=== PATIENT | male | born 1990 | race Caucasian/White ===

== ENCOUNTER 2019-08-04 13:42 | Emergency (ER) | payer OTHER ==
[~2019-08-04] VITALS: Ht 175.3 cm; Wt 85.5 kg
[2019-08-04 14:22] LABS: BASOPHILS % (AUTO) 0 % (0-1); EOSINOPHILS # (AUTO) 0.04 x10^3/uL (0-0.4); EOSINOPHILS % (AUTO) 0 % (1-7); LYMPHOCYTES # (AUTO) 1.98 x10^3/uL (1-3.4); LYMPHOCYTES % (AUTO) 17 % (22-44); MD NO; MEAN CORPUSCULAR HEMOGLOBIN 29.8 pg (27.5-34.5); MEAN CORPUSCULAR HGB CONC 32.8 g/dL (33.2-36.2); MEAN PLATELET VOLUME 7.9 fL (7.4-10.4); MONOCYTES # (AUTO) 0.63 x10^3/uL (0.2-0.8); MONOCYTES % (AUTO) 6 % (2-9); NEUTROPHILS # (AUTO) 8.81 x10^3/uL (1.8-6.8); NEUTROPHILS % (AUTO) 77 % (42-75); PLATELET COUNT 434 x10^3/uL (130-400)
--- NOTE | 2019-08-04 14:24 | NUR ---
LATE NOTE ENTRY DUE TO PT CARE: TASK RN, FIRST CONTACT WITH PT. Pt presents to ED with c/o intermittent sternal cp with out radiation that causes pt to feel sob. Pt denies pmh of cardiac issues. Pt connected to NIBP cuff, continous pulse ox monitor, and solderer torch. Lab at bedside. Call light within reach. Friend at bedside. Pt denies n/v/d, diaphoresis, or trauma. Pt has unlabored respirations with even chest rise and fall.
[2019-08-04 14:34] LABS: ALBUMIN 3.6 g/dL (3.4-5.0); ANION GAP 6 mmol/L (5-15); CALCIUM 8.9 mg/dL (8.5-10.1); CHLORIDE 107 mmol/L (98-107); CREATININE 1.08 mg/dL (0.7-1.3)
[2019-08-04 14:39] LABS: FREE T4 (FREE THYROXINE) 1.18 ng/dL (0.76-1.46); TROPONIN I < 0.015 ng/mL (0.000-0.045)
--- NOTE | 2019-08-04 15:03 | NUR ---
pt ambulatory with steady gait to bathroom. nadn. vss. no needs requested at this time.
[2019-08-04 15:46] VITALS: BP 126/63
--- NOTE | 2019-08-04 15:46 | NUR ---
PT RESTING ON JAYDON. SERA. FRIEND BEDSIDE. WATER GIVEN TO PT. NO OTHER NEEDS REQUESTED AT THIS TIME.
--- NOTE | 2019-08-04 16:18 | NUR ---
Patient/Caregiver given discharge instructions and they have confirmed that they understand the instructions. Patient ambulatory with steady gait. PT LEFT WITH ALL PERSONAL BELONGINGS.
== END 2019-08-04 16:20 | disposition home or self-care (01) ==
LOC: ED 16:10
DX: R00.2 Palpitations (principal); R06.02 Shortness of breath; R10.30 Lower abdominal pain, unspecified
CPT/HCPCS: 36415; 71046; 80048; 82040; 83735; 84439; 84443; 84484; 85025; 93005; 99285